=== PATIENT | female | born 1995 | race Caucasian/White ===

== ENCOUNTER 2021-06-15 18:23 | Emergency (ER) | payer MEDICAID ==
[~2021-06-15] VITALS: Ht 172.7 cm; Wt 77.1 kg
[2021-06-15 18:25] VITALS: BP_SYST 112
[2021-06-15] MEDS ORDERED: ONDANSETRON 4 MG ODT TAB PO ONE (19:00)
[2021-06-15] MEDS ORDERED: METO-290 PO (20:06)
[2021-06-15] MEDS ORDERED: DICY10CA13 PO (20:06)
[2021-06-15] MEDS ORDERED: METOCLOPRAMIDE HCL 10 MG TABLET PO ONE (21:00)
[2021-06-15 21:40] VITALS: BP_SYST 131
== END 2021-06-15 22:08 | disposition home or self-care (01) ==
LOC: SED 18:23
DX: R11.2 Nausea with vomiting, unspecified (principal); R10.13 Epigastric pain; Z79.899 Other long term (current) drug therapy
CPT/HCPCS: 81002; 81025; 99282; J8597

== ENCOUNTER 2021-06-19 12:48 | Emergency (ER) | payer MEDICAID ==
[~2021-06-19] VITALS: Ht 172.7 cm; Wt 72.6 kg
[~2021-06-19 12:48] MED LIST: DICY10CA13 PO; METO-290 PO
[2021-06-19 12:50] VITALS: BP_SYST 146
== END 2021-06-19 15:33 | disposition left against medical advice (07) ==
LOC: SED 12:48
DX: R10.9 Unspecified abdominal pain (principal); Z53.21 Procedure and treatment not carried out due to patient leaving prior to being seen by health care provider